=== PATIENT | female | born 2000 | race Caucasian/White ===

== ENCOUNTER → 2019-08-07 | Outpatient (CLI) | payer OTHER ==
--- NOTE | 2019-08-07 08:53 | XR ---
EXAMINATION TYPE: XR KUB DATE OF EXAM: 08/07/2019 COMPARISON: None INDICATION: Left-sided kidney stone gross hematuria TECHNIQUE: Single view abdomen supine view FINDINGS: There is a normal bowel gas pattern. Psoas margins are normal. No organomegaly is present. There is a 0.4 cm calcification overlying the inferior shadow of the left kidney. In the region of th e right mid kidney which also aligns with the mid transverse colon is an area of mild increased densi ty. Renal stone or artifact within the colon could be considered. This measures 0.7 cm. No additional suspicious calcifications are evident. IMPRESSION: 1. 0.4 cm inferior pole left renal stone. 2. Artifact versus possible calcification right mid kidney measuring 0.7 cm.
== END | disposition home or self-care (01) ==
LOC: RADXRMAIN 08:26
PROVIDERS: ATTEND Urology
DX: N20.0 Calculus of kidney (principal)
CPT/HCPCS: 74018

== ENCOUNTER → 2019-08-20 | Outpatient (CLI) | payer OTHER ==
--- NOTE | 2019-08-20 14:19 | XR ---
EXAMINATION TYPE: XR KUB DATE OF EXAM: 08/20/2019 HISTORY: Pain Comparison: 08/07/2019 Single KUB is submitted for interpretation. Findings: Right renal calculi: None Visualized. Right ureteral calculi: None Visualized. Left renal calculi: Previously noted left renal calculus is not clearly visualized. Left ureteral calculi: 3 mm calculus within the left hemipelvis may reflect distal ureteral calculus . Correlate clinically. Pelvic calcifications: As above Bowel gas pattern is unremarkable. No free air. No mass effects. IMPRESSION: 1. 3 mm calculus within the left hemipelvis may reflect distal ureteral calculus. Correlate clinicall y.
== END | disposition home or self-care (01) ==
LOC: RADXRMAIN 14:00
PROVIDERS: ATTEND Urology
DX: N20.0 Calculus of kidney (principal)
CPT/HCPCS: 74018

== ENCOUNTER 2020-07-12 05:04 | Emergency (ER) | payer OTHER ==
[2020-07-12 05:11] VITALS: RESP 18; TEMP 98.2
[2020-07-12] MEDS ORDERED: traMADol 50 MG TAB PO STA (05:49)
[2020-07-12] MEDS ORDERED: IBUPROFEN 600 MG TAB PO STA (05:49)
[2020-07-12] MEDS ORDERED: SODIUM CHLORIDE 0.9% 1,000 ML IV ONE (05:51)
--- NOTE | 2020-07-12 05:51 | ED ---
Abdominal Pain HPI - General Chief Complaint: Abdominal Pain Stated Complaint: Abdominal pain Time Seen by Provider: 07/12/20 05:14 Source: patient Mode of arrival: ambulatory Limitations: no limitations - History of Present Illness Initial Comments: This patient is 19-year-old woman who states that she does get very severe menstrual cramps. She states that she believes she started having this today. She went to work and noticed that the pain was becoming worse starting around 5 PM. The pains were preventing her from sleeping and she was also having some nausea tonight. She did try some ibuprofen earlier without much relief. MD Complaint: abdominal pain Onset/Timin -: hour(s) Location: suprapubic Radiation: none Quality: cramping Consistency: constant Improves With: nothing Worsens With: nothing Associated Symptoms: nausea Treatments Prior to Arrival: NSAIDs - Related Data LMP (females 10-50): this week Allergies Allergy/AdvReac Type Severity Reaction Status Date / Time Cephalosporins Allergy Rash/Hives Verified 07/12/20 05:11 Review of Systems ROS Statement: Those systems with pertinent positive or pertinent negative responses have been documented in the HPI. ROS Other: All systems not noted in ROS Statement are negative. Constitutional: Denies: fever, chills Respiratory: Denies: cough, dyspnea Cardiovascular: Denies: chest pain, palpitations Gastrointestinal: Reports: abdominal pain, nausea. Denies: vomiting, diarrhea Genitourinary: Denies: dysuria, frequency, hematuria, abnormal menses Musculoskeletal: Denies: back pain Skin: Denies: rash Neurological: Denies: headache, weakness, numbness Past Medical History Past Medical History: No Reported History Additional Past Medical History / Comment(s): Kindey stones History of Any Multi-Drug Resistant Organisms: None Reported Past Surgical History: No Surgical Hx Reported Past Psychological History: No Psychological Hx Reported Smoking Status: Never smoker Past Alcohol Use History: None Reported Past Drug Use History: None Reported General Exam Limitations: no limitations General appearance: alert, in no apparent distress Head exam: Present: atraumatic, normocephalic Eye exam: Present: normal appearance. Absent: scleral icterus, conjunctival injection Respiratory exam: Present: normal lung sounds bilaterally. Absent: respiratory distress, wheezes, rales, rhonchi, stridor Cardiovascular Exam: Present: regular rate, normal rhythm, normal heart sounds. Absent: systolic murmur, diastolic murmur, rubs, gallop GI/Abdominal exam: Present: soft, normal bowel sounds. Absent: distended, tenderness, guarding, rebound, rigid, pulsatile mass Extremities exam: Present: normal inspection, normal capillary refill. Absent: pedal edema, calf tenderness Back exam: Present: normal inspection. Absent: CVA tenderness (R), CVA tenderness (L) Neurological exam: Present: alert Skin exam: Present: warm, dry, intact, normal color. Absent: rash Course Vital Signs 07/12/20 05:09 Temperature 98.2 F Pulse Rate 75 Respiratory 18 Rate Blood Pressure 125/87 O2 Sat by Pulse 100 Oximetry Medical Decision Making - Lab Data Result diagrams: 07/12/20 06:03 Lab Results 07/12/20 07/12/20 07/12/20 Range/Units 05:31 05:31 06:03 WBC 7.6 (4.0-11.0) k/uL RBC 4.85 (3.80-5.40) m/uL Hgb 14.1 (11.4-16.0) gm/dL Hct 40.3 (34.0-46.0) % MCV 83.1 (80.0-100.0) fL MCH 29.0 (25.0-35.0) pg MCHC 34.9 (31.0-37.0) g/dL RDW 12.0 (11.5-15.5) % Plt Count 310 (150-450) k/uL MPV 7.1 Neutrophils % 64 % Lymphocytes % 25 % Monocytes % 8 % Eosinophils % 2 % Basophils % 1 % Neutrophils # 4.9 (1.3-7.7) k/uL Lymphocytes # 1.9 (1.0-4.8) k/uL Monocytes # 0.6 (0-1.0) k/uL Eosinophils # 0.1 (0-0.7) k/uL Basophils # 0.1 (0-0.2) k/uL Urine Color Yellow Urine Appearance Cloudy H (Clear) Urine pH 6.5 (5.0-8.0) Ur Specific [place] 1.014 (1.001-1.035) Urine Protein Negative (Negative) Urine Glucose (UA) Negative (Negative) Urine Ketones Negative (Negative) Urine Blood Moderate H (Negative) Urine Nitrite Negative (Negative) Urine Bilirubin Negative (Negative) Urine Urobilinogen <2.0 (<2.0) mg/dL Ur Leukocyte Esterase Negative (Negative) Urine RBC 28 H (0-5) /hpf Urine WBC 1 (0-5) /hpf Ur Squamous Epith Cells 2 (0-4) /hpf Amorphous Sediment Occasional H (None) /hpf Urine Bacteria Rare H (None) /hpf Urine Mucus Rare H (None) /hpf Urine HCG, Qual Not Detected (Not Detectd) Disposition Clinical Impression: Menorrhagia Disposition: HOME SELF-CARE Condition: Good Instructions (If sedation given, give patient instructions): Menorrhagia (ED) Is patient prescribed a controlled substance at d/c from ED?: No Referrals: Yariel Murrieta MD [Primary Care Provider] - 1-2 days
[2020-07-12 06:00] LABS: Amorphous Sediment,Urine Occasional /hpf; Appearance,Urine Cloudy (Clear); Bacteria,Urine Rare /hpf; Bilirubin,Urine Negative (Negative); Blood,Urine Moderate (Negative); Color,Urine Yellow; Glucose,Urine (UA) Negative (Negative); Ketones,Urine Negative (Negative); Leukocyte Esterase,Urine Negative (Negative); Mucus,Urine Rare /hpf; Nitrite,Urine Negative (Negative); PH, Urine 6.5 (5.0-8.0); Protein,Urine Negative (Negative); RBC,Urine 28 /hpf (0-5); Specific Gravity,Urine 1.014 (1.001-1.035); Squamous Epithelial Cell,Urine 2 /hpf (0-4); Urobilinogen,Urine <2.0 mg/dL (<2.0); WBC,Urine 1 /hpf (0-5)
[2020-07-12 06:29] LABS: Basophils # (A) 0.1 k/uL (0-0.2); Basophils % (A) 1 %; Eosinophils # (A) 0.1 k/uL (0-0.7); Eosinophils % (A) 2 %; HCT 40.3 % (34.0-46.0); HGB 14.1 gm/dL (11.4-16.0); Lymphocytes # (A) 1.9 k/uL (1.0-4.8); Lymphocytes % (A) 25 %; MCHC 34.9 g/dL (31.0-37.0); MCV 83.1 fL (80.0-100.0); Mean Platelet Volume 7.1; Monocytes # (A) 0.6 k/uL (0-1.0); Monocytes % (A) 8 %; Neutrophils # (A) 4.9 k/uL (1.3-7.7); Neutrophils % (A) 64 %; Platelet Count 310 k/uL (150-450); RBC 4.85 m/uL (3.80-5.40); WBC 7.6 k/uL (4.0-11.0)
[2020-07-12 06:37] LABS: ALT 10 U/L (4-34); AST 26 U/L (14-36); African American GFR (CKD) >90 (>60 ml/min/1.73 sqM); Albumin 4.7 g/dL (3.5-5.0); Alkaline Phosphatase 62 U/L (38-126); Anion Gap 9 mmol/L; Blood Urea Nitrogen 11 mg/dL (7-17); C Reactive Protein <5.0 mg/L (<10.0); Carbon Dioxide 25 mmol/L (22-30); Chloride 104 mmol/L (98-107); Glucose 95 mg/dL (74-99); Non-African American GFR(CKD) >90 (>60 ml/min/1.73 sqM); Potassium 4.4 mmol/L (3.5-5.1); Sodium 138 mmol/L (137-145); Total Bilirubin 1.4 mg/dL (0.2-1.3); Total Protein 7.4 g/dL (6.3-8.2)
[2020-07-12 06:48] VITALS: BP 117/93; PULSE 64
== END 2020-07-12 07:37 | disposition home or self-care (01) ==
LOC: EC 05:04
DX: N92.0 Excessive and frequent menstruation with regular cycle (principal); Z88.0 Allergy status to penicillin
CPT/HCPCS: 36415; 80053; 81001; 81025; 85025; 86140; 96360; 99284

== ENCOUNTER → 2021-09-29 | Outpatient (CLI) | payer BC, OTHER ==
--- NOTE | 2021-09-30 06:14 | US ---
EXAMINATION TYPE: US kidneys/renal and bladder DATE OF EXAM: 09/29/2021 COMPARISON: NONE CLINICAL HISTORY: R10.9 Unspecified abdominal pain. Pt states recurrent UTI's, flank pain bilaterally EXAM MEASUREMENTS: Right Kidney: 12.5 x 4.2 x 5.2 cm Left Kidney: 10.1 x 4.4 x 4.5 cm Right Kidney: Appeared wnl Left Kidney: Difficult to visualize due to overlying bowel gas/ No evidence of hydro/ cortical thinni ng when compared to right kidney Bladder: wnl Bilateral Jets seen: No There is no evidence for hydronephrosis at this point in time. No nephrolithiasis is seen. Increase d cortical echogenicity left kidney. No masses are identified. The urinary bladder is adequately dis tended. Bilateral ureteral jets are seen. IMPRESSION: No hydronephrosis noted bilaterally. Asymmetric diminished size to left kidney. Consider nuclear medicine follow-up study to assess split renal functions.
== END | disposition home or self-care (01) ==
LOC: RADUSWWP 16:08
PROVIDERS: ATTEND Family Medicine
DX: N39.0 Urinary tract infection, site not specified (principal)
CPT/HCPCS: 76770

== ENCOUNTER → 2021-10-26 | Outpatient (CLI) | payer BC ==
--- NOTE | 2021-10-27 00:03 | CT ---
EXAMINATION TYPE: CT abdomen pelvis wo con CT DLP: 427.30 mGycm, Automated exposure control for dose reduction was used. DATE OF EXAM: 10/26/2021 5:38 PM COMPARISON: Renal ultrasound 09/30/2021. CLINICAL INDICATION:Female, 21 years old with history of N23 Unspecified renal colic; kidney and some abdominal pain, recurring urinary tract infections TECHNIQUE: Standard CT of the abdomen and pelvis following the administration of oral contrast. Cor onal and sagittal reformats were performed. FINDINGS: LOWER CHEST: Unremarkable ABDOMEN LIVER: Unremarkable GALLBLADDER AND BILE DUCTS: Unremarkable. PANCREAS: Unremarkable. SPLEEN: Unremarkable. ADRENAL GLANDS: Unremarkable. KIDNEYS AND URETERS: No evidence of hydronephrosis or renal calculus. Mildly decreased in size of the left kidney compared to the right. PELVIS BLADDER: No evidence of bowel wall thickening or inflammatory changes. REPRODUCTIVE: Unremarkable. ABDOMEN & PELVIS STOMACH AND BOWEL: No evidence of bowel obstruction. PERITONEUM: No evidence of pneumoperitoneum or free fluid. VASCULATURE: No evidence of aortic aneurysm. MUSCULOSKELETAL: No acute osseous abnormalities. Left femoral head bony island. LYMPH NODES: No gross evidence for lymphadenopathy. SOFT TISSUE/ABDOMINAL WALL: Fat filled umbilical hernia measuring 7 mm at the neck. IMPRESSION: 1. No evidence of hydronephrosis, renal calculus or evidence for acute intra-abdominal process. 2. Mildly asymmetric decrease in size of the left kidney similar prior ultrasound.
== END | disposition home or self-care (01) ==
LOC: RADCTMAIN 15:47
PROVIDERS: ATTEND Family Medicine
DX: N23 Unspecified renal colic (principal); N28.89 Other specified disorders of kidney and ureter
CPT/HCPCS: 74176